=== PATIENT | female | born 1950 | race Caucasian/White ===

== ENCOUNTER 2022-09-27 18:04 | Emergency (ER) | payer OTHER ==
[2022-09-27 18:18] VITALS: BP 143/74; PULSE 78; RESP 18; TEMP 98.7; BMI 25.0
[2022-09-27] MEDS ORDERED: guaiFENesin/CODEINE 5 ML UNIT-DOSE CUPS PO ONE ×2 (19:38→19:49)
[2022-09-27 20:34] LABS: BASO % 0.2 % (0-2.0); EOS % 0.3 % (0-4.5); HEMATOCRIT 35.7 % (32.4-45.2); HEMOGLOBIN 12.5 GM/dL (10.7-15.3); MCH 32.6 pg (25.7-33.7); MCHC 34.9 g/dl (32.0-36.0); MEAN CELL VOLUME 93.4 fl (80-96); MEAN PLT VOLUME 8.8 fl (7.5-11.1); MONO % 12.5 % (3.8-10.2); PLATELET COUNT 73 10^3/uL (134-434); RBC 3.83 M/mm3 (3.60-5.2); RDW 12.7 % (11.6-15.6); WHITE BLOOD COUNT 2.1 K/mm3 (4.0-10.0)
[2022-09-27 20:57] LABS: ALBUMIN 3.6 g/dl (3.4-5.0); CALCIUM 9.2 mg/dL (8.5-10.1)
[2022-09-27 20:58] LABS: BLOOD UREA NITROGEN 11.7 mg/dL (7-18)
[2022-09-27 21:01] LABS: CREATININE 0.5 mg/dL (0.55-1.3)
[2022-09-27 21:02] LABS: BILIRUBIN,TOTAL 0.4 mg/dL (0.2-1); TOT PROT 6.7 g/dl (6.4-8.2)
== END 2022-09-27 21:39 | disposition home or self-care (01) ==
LOC: JER 18:04
DX: U07.1 COVID-19 (principal); D69.6 Thrombocytopenia, unspecified
CPT/HCPCS: 0241U-QW; 36415; 70450-TC; 80053; 85025; 99284-25